=== PATIENT | female | born 1995 | race Caucasian/White ===

== ENCOUNTER 2019-03-13 21:30 | Emergency (ER) | payer SELFPAY ==
[2019-03-13] MEDS: DIPHTH/TET/ACEL PERTUSS (ADULT) 0.5 ML VIAL IM* (22:39)
[2019-03-13] MEDS: MUPIROCIN 2% 22 GM OINT TOP (22:59)
== END 2019-03-13 23:35 | disposition home or self-care (01) ==
LOC: FTE 21:30
DX: S61.412A Laceration without foreign body of left hand, initial encounter (principal); W26.8XXA Contact with other sharp object(s), not elsewhere classified, initial encounter; Y92.89 Other specified places as the place of occurrence of the external cause; Z23 Encounter for immunization
CPT/HCPCS: 90471; 90715; 99283-25